=== PATIENT | male | born 1970 | race Caucasian/White ===

== ENCOUNTER 2019-05-05 23:39 | Emergency (ER) | payer OTHER ==
[2019-05-06] MEDS ORDERED: TAMSULOSIN 0.4 MG CAP.ER.24H PO STA (00:10)
[2019-05-06] MEDS ORDERED: FUROSEMIDE 10 MG/ML 4 ML VIAL IV STA (00:10)
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
[2019-05-06 00:47] LABS: Basophils % (A) 0 %; Eosinophils # (A) 0.1 k/uL (0-0.7); Eosinophils % (A) 1 %; HCT 36.2 % (39.0-53.0); HGB 11.5 gm/dL (13.0-17.5); Hypochromasia Slight; Lymphocytes % (A) 10 %; MCH 26.5 pg (25.0-35.0); MCHC 31.7 g/dL (31.0-37.0); MCV 83.6 fL (80.0-100.0); Mean Platelet Volume 9.6; Monocytes # (A) 0.7 k/uL (0-1.0); Monocytes % (A) 7 %; Neutrophils # (A) 7.9 k/uL (1.3-7.7); Neutrophils % (A) 80 %; Platelet Count 189 k/uL (150-450); RBC 4.33 m/uL (4.30-5.90); WBC 9.9 k/uL (3.8-10.6)
[2019-05-06 00:53] LABS: ALT 21 U/L (21-72); AST 21 U/L (17-59); African American GFR (CKD) >90 (>60 ml/min/1.73 sqM); Albumin 3.7 g/dL (3.5-5.0); Alkaline Phosphatase 64 U/L (38-126); Anion Gap 7 mmol/L; Blood Urea Nitrogen 16 mg/dL (9-20); Calcium 8.9 mg/dL (8.4-10.2); Carbon Dioxide 26 mmol/L (22-30); Chloride 105 mmol/L (98-107); Glucose 116 mg/dL (74-99); Non-African American GFR(CKD) 85 (>60 ml/min/1.73 sqM); Potassium 3.8 mmol/L (3.5-5.1); Sodium 138 mmol/L (137-145); Total Bilirubin 0.4 mg/dL (0.2-1.3); Total Protein 6.4 g/dL (6.3-8.2)
--- NOTE | 2019-05-06 00:58 | XR ---
EXAM: XR Chest, 2 Views CLINICAL HISTORY: Dyspnea. TECHNIQUE: Frontal and lateral views of the chest. COMPARISON: None. FINDINGS: Lungs: Unremarkable. No consolidation. Pleural space: No pneumothorax Heart: Moderate hiatal hernia is noted. Heart is normal in size. Mediastinum: Unremarkable. Bones/joints: No rib fracture Mild to moderate degenerative disc disease of the thoracic spine Normal alignment of the thoracic spine. IMPRESSION: Moderate hiatal hernia. No active disease. No pneumothorax.
[2019-05-06] MEDS ORDERED: AZITHROMYCIN 250 MG TAB PO STA (01:15)
[2019-05-06 01:23] VITALS: BP 111/66; PULSE 55; RESP 18; TEMP 99
== END 2019-05-06 01:39 | disposition home or self-care (01) ==
LOC: EC 23:39
DX: J40 Bronchitis, not specified as acute or chronic (principal); R60.0 Localized edema; K44.9 Diaphragmatic hernia without obstruction or gangrene; M51.34 Other intervertebral disc degeneration, thoracic region; F17.200 Nicotine dependence, unspecified, uncomplicated; I25.2 Old myocardial infarction
CPT/HCPCS: 36415; 85379; 83880; 80053; 85025; 71046; 99285; 96374; J1940